=== PATIENT | female | born 1980 | race Caucasian/White ===

== ENCOUNTER 2020-04-06 16:48 | Emergency (ER) | payer OTHER ==
[~2020-04-06 16:48] MED LIST: BUSPAR 10MG10 MG PO; FERROUS SULFAT325 M2 PO; LOVENOX100 MG/1 M SQ; PRENATAL VITAM1 EAC3 PO; PRENATAL VITAM1 EAC8 PO; PROZAC10 MG PO
== END 2020-04-06 18:23 | disposition home or self-care (01) ==
LOC: ER1 16:48
DX: O90.0 Disruption of cesarean delivery wound (principal); Z98.890 Other specified postprocedural states
CPT/HCPCS: 87070; 87077; 87186; 87205; 99283